=== PATIENT | male | born 1985 | race Caucasian/White ===

== ENCOUNTER 2017-04-07 04:15 | Emergency (ER) | payer BC, MEDICAID ==
[~2017-04-07] VITALS: Ht 175.3 cm; Wt 82.0 kg
[2017-04-07] MEDS: IPRATROPIUM/ALBUTEROL 0.5-3(2.5)MG/3ML NEB HHN ONE ×2 (05:52→06:29)
[2017-04-07 05:53] VITALS: BP 125/84
== END 2017-04-07 06:30 | disposition home or self-care (01) ==
LOC: ER 04:15
DX: J20.8 Acute bronchitis due to other specified organisms (principal); F17.210 Nicotine dependence, cigarettes, uncomplicated
CPT/HCPCS: 94640; 99283; J7620